=== PATIENT | male | born 1980 | race Two or more races ===

== ENCOUNTER 2021-05-20 10:22 | Outpatient (REF) | payer OTHER, SELFPAY ==
[2021-05-20 11:53] LABS: Alanine Aminotransferase 49 U/L (0-40); Aspartate Amino Transferase 32 U/L (5-37)
[2021-05-20 12:09] LABS: Gamma Glutamyl Transpeptidase 115 U/L (11-51)
== END 2021-05-20 10:23 | disposition home or self-care (01) ==
LOC: HO.LAB 10:22
PROVIDERS: Visit Provider Family Medicine
DX: F11.20 Opioid dependence, uncomplicated (principal)
CPT/HCPCS: 36415; 82977; 84450; 84460